=== PATIENT | male | born 1950 | race Hispanic/Latino ===

== ENCOUNTER → 2020-04-05 | Outpatient (CLI) | payer OTHER ==
[~2020-04-05] MED LIST: FURO20TA4 PO
== END | disposition home or self-care (01) ==
LOC: SHCH 14:55
PROVIDERS: ATTEND Internal Medicine
DX: I48.20 Chronic atrial fibrillation, unspecified (principal)
CPT/HCPCS: 93306

== ENCOUNTER 2020-07-04 06:53 | Observation (INO) | payer OTHER ==
[2020-06-26 12:10] LABS: BASOPHILS % (AUTO) 1.1 % (0.0-5.0); EOSINOPHILS % (AUTO) 1.7 % (0.0-8.0); HEMATOCRIT 39.9 % (42-54); LYMPHOCYTES % (AUTO) 18.9 % (21.0-51.0); MEAN CORPUSCULAR HGB CONC 31.6 g/dL (32.0-36.0); MONOCYTES % (AUTO) 6.7 % (3.0-13.0); NEUTROPHILS % (AUTO) 71.4 % (40.0-77.0); PLATELET COUNT (AUTO) 185 K/uL (130-400); RED CELL DISTRIBUTION WIDTH 13.2 % (11.0-15.5); WHITE BLOOD COUNT (AUTO) 6.4 K/uL (4.8-10.8)
[2020-06-26 12:24] LABS: CREATININE 1.5 mg/dL (0.5-1.5)
[2020-06-26 12:30] LABS: INR 1.05 (0.85-1.15); PROTHROMBIN TIME 11.4 SEC (9.6-11.6)
[2020-06-26 12:31] LABS: PARTIAL THROMBOPLASTIN TIME 29.5 SEC (26.3-35.5)
[2020-07-03 15:08] VITALS: BP 165/79
[2020-07-04] VITALS (18 sets, daily range): BP systolic 146–166; BP diastolic 65–85
[~2020-07-04] VITALS: Ht 160 cm; Wt 121.6 kg
[~2020-07-04 06:53] MED LIST changes: +APIX5TAB PO; -FURO20TA4 PO; +LOSA50TA64 PO; +METO-408 PO
[2020-07-04] MEDS ORDERED: CEFAZOLIN SODIUM 1 GM VIAL IVP ONE (08:00)
[2020-07-04] MEDS ORDERED: LACTATED RINGERS 1000ML 1,000 ML IV SCH (08:00)
[2020-07-04] MEDS ORDERED: ROPIVACAINE 0.5% 5MG/ML 30ML IJ ONE (10:21)
[2020-07-04] MEDS ORDERED: LIDOCAINE PF 100MG/5ML (2%) SYRINGE 5ML ONE ×2 (10:23→11:44)
[2020-07-04] MEDS ORDERED: CEFAZOLIN SODIUM 1 GM VIAL ONE ×2 (10:23→13:26)
[2020-07-04] MEDS ORDERED: SUCCINYLCHOLINE CHLORIDE 20 MG/ML 10 ML VIAL ONE ×2 (10:23→11:44)
[2020-07-04] MEDS ORDERED: PROPOFOL 10 MG/ML 20ML VIAL IV ONE ×2 (10:23→11:44)
[2020-07-04] MEDS ORDERED: FENTANYL CITRATE PF 50 MCG/1 ML 2ML VIAL ONE ×3 (10:24→15:20)
[2020-07-04] MEDS ORDERED: ROCURONIUM 10MG/1ML SYR 10 MG/ML ML ONE ×3 (10:24→13:33)
[2020-07-04] MEDS ORDERED: GLYCOPYRROLATE 1 MG/5 ML SYRINGE ONE ×2 (10:24→11:45)
[2020-07-04] MEDS ORDERED: NEOSTIGMINE 5MG/5ML SYR IV ONE ×2 (10:24→11:45)
[2020-07-04] MEDS ORDERED: DEXAMETHASONE SOD PHOSPHATE 10MG/ML 1ML VIAL ONE (11:44)
[2020-07-04] MEDS ORDERED: MIDAZOLAM HCL 1 MG/ML 2ML VIAL ONE (11:45)
[2020-07-04] MEDS ORDERED: ONDANSETRON 4MG INJ ONE (11:45)
[2020-07-04] MEDS ORDERED: KETAMINE 50MG/ML SYRINGE 50 MG/ML DISP.SYRIN IV ONE (12:42)
[2020-07-04] MEDS ORDERED: TRANEXAMIC ACID 1000MG/10ML ONE ×3 (13:36→13:37)
[2020-07-04] MEDS ORDERED: KETOROLAC 15MG/ML VIAL (15MG/ML) IV PRN (16:00)
[2020-07-04] MEDS: 0.9%NACL 1000ML 1,000 ML IV SCH (16:00)
[2020-07-04] MEDS ORDERED: OXYCODONE HCL 5 MG TAB PO PRN (16:00)
[2020-07-04] MEDS ORDERED: ONDANSETRON 4MG INJ IVP PRN (16:00)
[2020-07-04] MEDS ORDERED: MORPHINE 4 MG SYG IVP PRN (16:00)
[2020-07-04] MEDS: ACETAMINOPHEN 500 MG TABLET PO SCH (16:00)
[2020-07-04] MEDS ORDERED: TRAMADOL HCL 50 MG TABLET PO PRN (16:00)
[2020-07-04] MEDS ORDERED: MEPERIDINE-PF 25 MG/ML SYG ONE (16:20)
[2020-07-04] MEDS: ASPIRIN 81 MG EC TAB PO SCH (21:00)
[2020-07-04] MEDS: CEFAZOLIN SODIUM 1 GM VIAL IVP SCH (21:00)
[2020-07-05 00:08] VITALS: BP 151/70
[2020-07-05] MEDS: ACETAMINOPHEN 500 MG TABLET PO SCH ×3 (00:12→16:00)
[2020-07-05] MEDS: CEFAZOLIN SODIUM 1 GM VIAL IVP SCH (03:53)
[2020-07-05 04:08] VITALS: BP 149/58
[2020-07-05] MEDS: 0.9%NACL 1000ML 1,000 ML IV SCH ×2 (04:09→09:57)
[2020-07-05 05:07] LABS: HEMATOCRIT 37.7 % (42-54); MEAN CORPUSCULAR VOLUME 93.5 fL (79-99); PLATELET COUNT (AUTO) 165 K/uL (130-400); RED BLOOD CELL COUNT(AUTO) 4.03 MIL/uL (4.50-6.20); RED CELL DISTRIBUTION WIDTH 12.9 % (11.0-15.5); WHITE BLOOD COUNT (AUTO) 11.7 K/uL (4.8-10.8)
[2020-07-05 05:28] LABS: CREATININE 1.4 mg/dL (0.5-1.5); POTASSIUM 4.3 mmol/L (3.5-5.1)
[2020-07-05] MEDS ORDERED: LOSARTAN 50 MG TABLET PO SCH (09:00)
[2020-07-05] MEDS ORDERED: FAMOTIDINE 20MG TAB PO SCH (09:00)
[2020-07-05] MEDS ORDERED: METOPROLOL SUCCINATE 50 MG TAB.SR.24H PO SCH (09:00)
[2020-07-05] MEDS ORDERED: POLYETHYLENE GLYCOL 3350 17 GM POWD.PACK PO SCH (09:00)
[2020-07-05] MEDS: ASPIRIN 81 MG EC TAB PO SCH (09:17)
[2020-07-05 11:22] VITALS: BP 120/56
[2020-07-05 16:19] VITALS: BP 146/69
[2020-07-06] MEDS ORDERED: APIXABAN 5 MG TABLET PO SCH (09:00)
== END 2020-07-05 18:00 | disposition home or self-care (01) ==
LOC: DAH 06:53 → 3AH 14:00 → INTOOBSV 14:00 → DAH 15:52 → UNDOADMIN 15:52 → 3AH 15:52
PROVIDERS: ADMIT Orthopaedic Surgery; ATTEND Orthopaedic Surgery
DX: M16.11 Unilateral primary osteoarthritis, right hip (principal); Z20.822 Contact with and (suspected) exposure to COVID-19; E66.01 Morbid (severe) obesity due to excess calories; J45.909 Unspecified asthma, uncomplicated; M10.9 Gout, unspecified; Z79.899 Other long term (current) drug therapy; Z68.42 Body mass index [BMI] 45.0-49.9, adult
CPT/HCPCS: 27130; 36415 ×2; 73502; 73503; 80048 ×2; 85025; 85027; 85610; 85730; 87070; 87076; 87205; 87641 ×2; 88304; 88311; 96361; 96374; 96375 ×2; 96376; 97039 ×2; 97116 ×2; 97161; A4215; A4221; A4222; A4223; A4606; A4649 ×4; A4663; A4930; A9272; C1776; C9803; G0378 ×25; G8978; G8979; G8980; G8981; G8982; G8983; J0330; J0690 ×4; J1100; J1885; J2001 ×2; J2175; J2250; J2270; J2405 ×2; J2704 ×2; J2710; J2795; J3010 ×2; J3490 ×5; J7030; J7120 ×2; U0003